=== PATIENT | male | born 1980 | race Asian ===

== ENCOUNTER 2019-12-04 16:19 | Emergency (ER) | payer OTHER ==
[~2019-12-04] VITALS: Ht 182.9 cm; Wt 88.2 kg
[2019-12-04 16:23] VITALS: BP 139/92
[2019-12-04] MEDS ORDERED: DiphenhydrAMINE HCL 50 MG CAPSULE PO ONE (17:00)
[2019-12-04] MEDS ORDERED: DEXAMETHASONE SOD PHOS 4 MG/ML 5 ML VIAL IM ONE (17:00)
== END 2019-12-04 17:30 | disposition home or self-care (01) ==
LOC: EMS 16:24 → EDSEX 16:24 → EMS 17:30
DX: L50.9 Urticaria, unspecified (principal); H10.9 Unspecified conjunctivitis
CPT/HCPCS: 96372; 99283; J1100

== ENCOUNTER 2021-05-23 09:22 | Emergency (ER) | payer MEDICAID, SELFPAY ==
[~2021-05-23] VITALS: Ht 185.4 cm; Wt 93.2 kg
[2021-05-23 09:28] VITALS: BP 126/79
[2021-05-23] MEDS ORDERED: PredniSONE 20 MG TABLET PO ONE (10:00)
[2021-05-23] MEDS ORDERED: DiphenhydrAMINE HCL 50 MG/ML VIAL IM ONE (10:00)
== END 2021-05-23 10:43 | disposition home or self-care (01) ==
LOC: EMS 09:25
DX: L20.9 Atopic dermatitis, unspecified (principal)
CPT/HCPCS: 96372; 99283; J1200; J7512